=== PATIENT | female | born 1950 | race Caucasian/White ===

== ENCOUNTER → 2016-10-23 | Outpatient (CLI) | payer MEDICARE, OTHER ==
[~2016-10-23] MED LIST: ALPR0.5T11 PO; LOVA20TA2 PO; LVT.112T PO; PREMARIN VAG CR45 GM PV
--- NOTE | 2016-10-24 20:25 | Diagnostic Imaging Report ---
Bilateral screening mammogram The current study was also evaluated with a Computer Aided Detection (CAD) system. Indication: Screening. No current complaints stated on the questionnaire. COMPARISON: 09/27/15 FINDINGS: The breasts are composed of scattered fibroglandular densities. There are benign-appearing calcifications seen. Allowing for technique and positional differences, no suspicious change is seen. IMPRESSION: No significant change. ACR BI-RADS Category 2: Benign findings. Result letter will be mailed to the patient. Note: At least 10% of breast cancer is not imaged by mammography. Dictated on workstation # [id number]
== END ==
LOC: RAD 14:27
PROVIDERS: ATTEND Internal Medicine
DX: Z12.31 Encounter for screening mammogram for malignant neoplasm of breast (principal)
CPT/HCPCS: 77067

== ENCOUNTER → 2017-08-28 | Outpatient (CLI) | payer MEDICARE, OTHER ==
--- NOTE | 2017-08-28 15:37 | Diagnostic Imaging Report ---
INDICATION: Fall four months ago with pain in the tailbone region. TIME OF EXAMINATION: 03:36 p.m. FINDINGS: Sacrococcygeal alignment appears normal. No fracture is seen. Sacral arcuate lines are intact. SI joints and symphysis are non-widened. IMPRESSION: No acute abnormality is detected. Dictated by: Dictated on workstation # [id number]
== END ==
LOC: RAD 15:05
PROVIDERS: ATTEND Chiropractor
DX: M53.3 Sacrococcygeal disorders, not elsewhere classified (principal); W19.XXXD Unspecified fall, subsequent encounter; Z80.0 Family history of malignant neoplasm of digestive organs
CPT/HCPCS: 72220

== ENCOUNTER → 2017-10-29 | Outpatient (CLI) | payer MEDICARE, OTHER ==
--- NOTE | 2017-10-29 20:10 | Diagnostic Imaging Report ---
INDICATION: Osteoporosis screening. COMPARISON: Prior study from 09/27/2015. EXAMINATION: Bone mineral analysis of the lumbar spine and both hips was performed. FINDINGS: The bone mineral density of the lumbar spine at L2-L4 is 1.086 with a T-score of -1.0. This compares with 1.092 and -0.9. The bone mineral density of the left femoral neck is 0.814 with T-score of -1.6. This compares with 0.870 and -1.2. Bone marrow density of right femoral neck is 0.826 with T-score of -1.5. This compares with 0.831 and -1.5. IMPRESSION: Findings consistent with osteopenia of the lumbar spine and bilateral femoral necks. Dictated by: Dictated on workstation # [id number]
--- NOTE | 2017-10-29 20:47 | Diagnostic Imaging Report ---
INDICATION: Routine screening. COMPARISON: Comparison is made with prior mammograms from 10/23/2016 and 09/27/2015. TECHNIQUE: 2D and 3D bilateral screening mammography was performed with computer-aided detection (CAD) system. FINDINGS: Scattered fibroglandular densities are identified bilaterally. There are benign-appearing parenchymal and vascular calcifications bilaterally. Intraparenchymal lymph node in the upper right breast is stable. No spiculated mass or malignant appearing microcalcifications are seen. The axillae are unremarkable. IMPRESSION: No mammographic features suspicious for malignancy are identified. ACR BI-RADS Category 2: Benign findings. Result letter will be mailed to the patient. Note: At least 10% of breast cancer is not imaged by mammography. Dictated by: Dictated on workstation # [id number]
== END ==
LOC: RAD 10:27
PROVIDERS: ATTEND Internal Medicine
DX: Z12.31 Encounter for screening mammogram for malignant neoplasm of breast (principal); Z13.820 Encounter for screening for osteoporosis; M81.0 Age-related osteoporosis without current pathological fracture
CPT/HCPCS: 77067; 77080

== ENCOUNTER → 2018-07-05 | Outpatient (CLI) | payer MEDICARE, OTHER ==
--- NOTE | 2018-07-05 18:06 | Diagnostic Imaging Report ---
PA and lateral chest at 427 hours. INDICATION: Pneumonia. There are no prior studies available for comparison. FINDINGS: The heart size is within normal limits. There are a few crowded bronchovascular markings in the left infrahilar region. These findings could be chronic in nature but the possibility that there is an element of mild acute pneumonia/atelectasis should be considered. Clinical followup is recommended. The lungs are otherwise clear. There is no pleural effusion identified. The mediastinum is not widened. The osseous structures are intact. IMPRESSION: 1. The findings are suspicious for mild left lower lobe pneumonia/atelectasis. Clinical followup is recommended. 2. There is no acute cardiopulmonary abnormality noted otherwise. Dictated by: Dictated on workstation # [id number]
== END ==
LOC: RAD 16:05
PROVIDERS: ATTEND Internal Medicine
DX: J18.1 Lobar pneumonia, unspecified organism (principal)
CPT/HCPCS: 71046

== ENCOUNTER 2018-07-14 05:41 | Outpatient (CLI) | payer MEDICARE, OTHER ==
[~2018-07-14] VITALS: Ht 165.1 cm; Wt 68.9 kg
[2018-07-14] MEDS ORDERED: UBID100C44 PO (10:34)
[2018-07-14] MEDS ORDERED: CHOL200014 PO (10:34)
[2018-07-14] MEDS ORDERED: LEVO112T55 PO (10:34)
[2018-07-14] MEDS ORDERED: GLUT5POW MC (10:34)
[2018-07-14] MEDS ORDERED: MESA10002 RC (10:34)
[2018-07-14] MEDS ORDERED: LEVO125T6 PO (10:34)
[2018-07-14] MEDS ORDERED: JUICE PLUS PO (10:34)
[2018-07-14] MEDS ORDERED: LOVA20TA2 PO (10:34)
[2018-07-14] MEDS ORDERED: MULT-1112 PO (10:34)
== END 2018-07-14 10:52 | disposition home or self-care (01) ==
LOC: PREOP 05:41
PROVIDERS: ATTEND Surgery
DX: Z01.818 Encounter for other preprocedural examination (principal)

== ENCOUNTER 2018-07-21 09:57 | Day surgery (SDC) | payer MEDICARE, OTHER ==
[~2018-07-21] VITALS: Ht 165.1 cm; Wt 68.9 kg
[~2018-07-21 09:57] MED LIST changes: +CHOL200014 PO; +GLUT5POW MC; +JUICE PLUS PO; +LEVO112T55 PO; +LEVO125T6 PO; +MESA10002 RC; +MULT-1112 PO; +UBID100C44 PO
[2018-07-21] MEDS ORDERED: NS IV 500 ML 500 ML ONE (10:06)
[2018-07-21] MEDS ORDERED: NS IV 500 ML 500 ML IV PRN (10:07)
[2018-07-21] MEDS ORDERED: MIDAZOLAM 2 MG/2 ML (VERSED) VIAL IVP ONE (10:15)
[2018-07-21] MEDS ORDERED: fentaNYL INJECTION 100 MCG/2 ML AMP IVP ONE (10:15)
[2018-07-21] MEDS ORDERED: LIDOCAINE JELLY 2% 6 ML SYRINGE MM PRN ×2 (10:15→10:30)
[2018-07-21 10:23] VITALS: BP 133/71
[2018-07-21] MEDS ORDERED: LIDOCAINE JELLY 2% 6 ML SYRINGE ONE (10:24)
[2018-07-21] MEDS ORDERED: fentaNYL INJECTION 100 MCG/2 ML AMP ONE ×2 (10:24)
[2018-07-21] MEDS ORDERED: MIDAZOLAM 2 MG/2 ML (VERSED) VIAL ONE ×4 (10:24)
[2018-07-21] MEDS ORDERED: NS IV 500 ML 500 ML IV ONE (10:30)
--- NOTE | 2018-07-21 10:33 | Conscious Sedation/ASA ---
Conscious Sedation Pre-Proced Time 10:15 ASA Score 2 For ASA 3 and 4: Consider anesthesia and medical clearance. Also, for patients with a history of failed moderate sedation consider anesthesia. Airway Lungs Heart ASA score ASA 1: a normal healthy patient ASA 2: a patient with a mild systemic disease (mid diabetes, controlled hypertension, obesity ASA 3: a patient with a severe systemic disease that limits activity (angina , COPD, prior Myocardial infarction) ASA 4: a patient with an incapacitating disease that is a constant threat to life (CHF, renal failure) ASA 5: a moribund patient not expected to survive 24 hrs. (ruptured aneurysm) ASA 6: a declared brain- patient whose organs are being harvested. For emergent operations, add the letter E after the classification Mallampati Classification Grade 2 Sedation Plan Analgesia, Amnesia, Plan communicated to team members, Discussed options with patient/fam, Discussed risks with patient/fam The patient is an appropriate candidate to undergo the planned procedure, sedation, and anesthesia. The patient immediately re-assessed prior to indication. DAYRON ALMAZAN MD Jul 21, 2018 10:33
--- NOTE | 2018-07-21 10:33 | Progress Note-Pre Operative ---
Pre-Operative Progress Note H&P Reviewed The H&P was reviewed, patient examined and no changes noted. Date Seen by Provider: Jul 21, 2018 Time Seen by Provider: 10:15 Date H&P Reviewed: Jul 21, 2018 Time H&P Reviewed: 10:15 Pre-Operative Diagnosis: screening colonoscopy DAYRON ALMAZAN MD Jul 21, 2018 10:33
[2018-07-21] MEDS: fentaNYL INJECTION 100 MCG/2 ML AMP IV PRN ×2 (10:35→10:53)
--- NOTE | 2018-07-21 10:35 | Discharge Inst-Surgical ---
D/C Lap Instructions-NORAH Follow Up 10 yrs Activity as tolerated High Fiber Diet 25g or more per day Avoid Alcohol, Caffeine, Spicy [place] and Acid foods. Drink 64 fluid oz or more of fluids per day. Symptoms to Report: Fever over 101 degree F, Nausea/Vomiting If any problems/questions: Contact your physician or go to Emergency Room DAYRON ALMAZAN MD Jul 21, 2018 10:35
[2018-07-21] MEDS ORDERED: morphine INJ 10 MG/ML 1ML (SYR OR VIAL) IV PRN (10:45)
[2018-07-21] MEDS ORDERED: HYDROcodone/APAP 5 MG/325 MG (LORTAB) TAB PO PRN (10:45)
[2018-07-21] MEDS ORDERED: ONDANSETRON 4 MG/2 ML (SDV) Z0FRAN IV PRN (10:45)
[2018-07-21] MEDS ORDERED: ACETAMINOPHEN 325 MG TABLET PO PRN (10:45)
[2018-07-21] MEDS: MIDAZOLAM 2 MG/2 ML (VERSED) VIAL IV PRN ×4 (10:52→11:06)
--- NOTE | 2018-07-21 11:37 | Progress Note-Post Operative ---
Post-Operative Progess Note Surgeon (s)/Primer Press Operator (s) Surgeon DAYRON ALMAZAN MD Primer Press Operator: none Pre-Operative Diagnosis screening colonoscopy Post-Operative Diagnosis mild chronic stage 2 ext and int hemorrhoids. Procedure & Operative Findings Date of Procedure 07/21/18 Procedure Performed/Findings colonoscopy Anesthesia Type cs Estimated Blood Loss Estimated blood loss (mL): minimal Specimens/Packing Specimens Removed none DAYRON ALMAZAN MD Jul 21, 2018 11:37
[2018-07-21 11:55] VITALS: BP 114/59
[2018-07-21 12:30] VITALS: BP 121/64
[2018-07-21 13:00] VITALS: BP 121/64
--- NOTE | 2018-07-21 13:11 | OPERATIVE REPORT ---
DATE OF SERVICE: 07/21/2018 ATTENDING PRIMARY CARE PHYSICIAN: Dr. Ribeiro. PREOPERATIVE DIAGNOSIS: Screening colonoscopy with family history of colon cancer. PROCEDURE: Colonoscopy. SURGEON: Dayron Almazan MD ANESTHESIA: Conscious sedation. ESTIMATED BLOOD LOSS: Minimal. FINDINGS: Mild chronic stage II external and internal hemorrhoids. Remainder of the rectum and colon were normal. There were no polyps or any neoplasms identified. DISPOSITION: The patient tolerated the procedure well. The patient is a 68-year-old female in need of a screening colonoscopy. Her last one was in 2012 which she had reported some mild proctitis. At this time, she does not report any major issues with diarrhea nor constipation as well as no red blood per rectum nor any dark tarry stools. She does have a family history of colon cancer with her father having the disease being diagnosed at age 67. The patient was brought to the endoscopy suite, laid in the left lateral decubitus position. After adequate IV pain and sedative medications and conscious sedation anesthesia, a digital rectal examination was performed. Mild chronic stage II external and internal hemorrhoids were identified, which were not actively edematous nor inflamed and no bleeding. Normal sphincter tone was felt and there were no palpable masses. The endoscope was then intubated to the anus and rectum gently insufflated. The endoscope was then advanced to the valves of Welch in the rectum with no polyps or any neoplasms identified. We then proceeded to the sigmoid colon where no diverticulosis identified. The endoscope was then advanced to the remainder of the descending, transverse and ascending colon to the cecum. These segments were normal. There were no polyps or any neoplasms identified throughout the colon or rectum. The endoscope was then slowly withdrawn while taking a second look and suctioning residual air with no additional findings. The patient tolerated the procedure well. We will recommend a high fiber diet with at least 25 grams of fiber per day as well as significant amounts of water to promote soft stools on a daily basis. She does not need another colonoscopy for another 5 years. Job ID: [id number] DocumentID: [id number] Dictated Date: 07/21/2018 11:31:15 License Inspector Date: 07/21/2018 13:11:12 Dictated By: DAYRON ALMAZAN MD
== END 2018-07-21 13:00 | disposition home or self-care (01) ==
LOC: ENDO 09:57
PROVIDERS: ATTEND Surgery
DX: Z12.11 Encounter for screening for malignant neoplasm of colon (principal); K64.1 Second degree hemorrhoids; Z80.0 Family history of malignant neoplasm of digestive organs; Z87.19 Personal history of other diseases of the digestive system; R73.03 Prediabetes; E03.9 Hypothyroidism, unspecified; Z87.01 Personal history of pneumonia (recurrent); Z79.899 Other long term (current) drug therapy

== ENCOUNTER → 2018-08-05 | Outpatient (CLI) | payer MEDICARE, OTHER ==
--- NOTE | 2018-08-05 16:58 | Diagnostic Imaging Report ---
EXAMINATION: PA chest at 11:16 a.m. INDICATION: Respiratory distress, pneumonia. FINDINGS: The heart size is within normal limits and stable when compared to 07/05/2018. The prior study did raise the question of mild pneumonia/atelectasis involving the left lung base. On this exam, there still appears to be some increased density in the left retrocardiac region. These findings could be related to superimposition. The possibility that there is an element of pneumonia/atelectasis in this area should still be considered. If further imaging is desired, then CT of the chest will be recommended. The overall appearance of the chest is otherwise no different. There is now an oval metallic density overlying the lower cervical spine. This may be extraneous to the patient. IMPRESSION: 1. There is still an area of slightly increased density in the left retrocardiac region. Whether this is secondary to superimposition or where there is an element of pneumonia/atelectasis is not certain. If further imaging is desired, then CT of the chest will be recommended. 2. The overall appearance of the chest is otherwise stable. No new abnormality has developed otherwise. Dictated by: Dictated on workstation # [id number]
== END ==
LOC: RAD 11:00
PROVIDERS: ATTEND Internal Medicine
DX: J18.9 Pneumonia, unspecified organism (principal); J98.4 Other disorders of lung
CPT/HCPCS: 71045

== ENCOUNTER → 2018-08-12 | Outpatient (CLI) | payer MEDICARE, OTHER ==
--- NOTE | 2018-08-12 12:29 | Diagnostic Imaging Report ---
PROCEDURE: CT chest without contrast. TECHNIQUE: Multiple contiguous axial images were obtained through the chest without the use of intravenous contrast. INDICATION: Pneumonia, abnormal breath sounds. COMPARISON: None. FINDINGS: Given limitations on noncontrast imaging, no pathologically enlarged mediastinal and/or hilar lymphadenopathy is suggested. Heart size is normal. Trace pericardial effusion. Suggestion of likely minimal atelectasis about the right lower lobe. No significant consolidating infiltrate. In particular, no significant left lower lobe infiltrate. No pleural effusion. Multiple low-density masses scattered throughout the liver, favoring probable cysts. Multilevel degenerative changes are present. There is prominent ossification along the posterior longitudinal ligament at the T12-L1 level. This does result in osseous narrowing of spinal canal, slightly greater to the left of midline. IMPRESSION: 1. Negative for acute abnormality of the chest. No significant consolidating infiltrate. Likely minimal asymmetric atelectasis of the right lower lobe. 2. Incidental note made of asymmetric spinal canal stenosis owing to ossification along the posterior longitudinal ligament at T12-L1 level. Dictated by: Dictated on workstation # [id number]
== END ==
LOC: RAD 09:09
PROVIDERS: ATTEND Internal Medicine
DX: J18.9 Pneumonia, unspecified organism (principal); M48.05 Spinal stenosis, thoracolumbar region
CPT/HCPCS: 71250

== ENCOUNTER → 2018-11-22 | Outpatient (CLI) | payer MEDICARE, OTHER ==
--- NOTE | 2018-11-22 11:09 | Diagnostic Imaging Report ---
Indication: Routine screening. Comparison is made prior mammogram from 10/29/2017 and 10/23/2016. 2-D and 3-D bilateral screening mammography was performed with CAD. Both breasts remain heterogeneously dense, limiting the sensitivity of mammography. Fibronodular parenchymal pattern appears to be fairly stable. Benign calcifications are noted bilaterally. No dominant mass or malignant appearing microcalcifications are seen. Axillae are unremarkable. Impression: BI-RADS category 2 No mammographic features suspicious for malignancy are identified. ACR BI-RADS Category 2: Benign findings. Result letter will be mailed to the patient. Note: At least 10% of breast cancer is not imaged by mammography. Dictated by: Dictated on workstation # [id number]
== END ==
LOC: RAD 09:11
PROVIDERS: ATTEND Internal Medicine
DX: Z12.31 Encounter for screening mammogram for malignant neoplasm of breast (principal)
CPT/HCPCS: 77067

== ENCOUNTER → 2019-12-13 | Outpatient (CLI) | payer MEDICARE, OTHER ==
--- NOTE | 2019-12-13 13:02 | Diagnostic Imaging Report ---
INDICATION: Routine screening. Comparison is made with prior mammogram from 11/22/2018 and 10/29/2017. 2-D and 3-D bilateral screening mammography was performed with CAD. Both breasts are heterogeneously dense, limiting the sensitivity of mammography. Circumscribed nodular densities in both breasts appear to be stable. No dominant mass or malignant appearing microcalcifications are seen. There are benign parenchymal and vascular calcifications bilaterally. Axillae is unremarkable. IMPRESSION: BI-RADS Category 2 No mammographic features suspicious for malignancy are identified. ACR BI-RADS Category 2: Benign findings. Result letter will be mailed to the patient. Note: At least 10% of breast cancer is not imaged by mammography. Dictated by: Dictated on workstation # [id number]
== END ==
LOC: RAD 08:57
PROVIDERS: ATTEND Internal Medicine
DX: Z12.31 Encounter for screening mammogram for malignant neoplasm of breast (principal)
CPT/HCPCS: 77063; 77067

== ENCOUNTER → 2021-01-08 | Outpatient (CLI) | payer MEDICARE, OTHER ==
[~2021-01-08] MED LIST changes: -MESA10002 RC; +MESA10003 RC
--- NOTE | 2021-01-08 09:24 | Diagnostic Imaging Report ---
INDICATION: Postmenopausal screening for osteoporosis COMPARISON: 10/29/2017 FINDINGS: AP Spine L1-L4: [BMD (g/cm2): 1.053] [T-Score: -1.2] [Z-Score: 0.4] [BMD Previous: 1.086] [BMD % Change: -3.0] LT Hip Neck: [BMD (g/cm2): 0.838] [T-Score: -1.4] [Z-Score: 0.3] LT Hip Total: [BMD (g/cm2):0.846] [T-Score:-1.3] [Z-Score: 0.2] [BMD Previous: 0.845] [BMD % Change: 0.1] RT Hip Neck: [BMD (g/cm2):0.832] [T-Score:-1.5] [Z-Score:0.3] RT Hip Total: [BMD (g/cm2):0.837] [T-score:-1.4] [Z-Score:0.2] [BMD Previous:0.853] [BMD % Change:-1.9] *Indicates significant change from prior examination based on 95% confidence level. World Health Organization criteria for BMD interpretation classify patients as Normal (T-score at or above -1.0), Osteopenic (T-score between -1.0 and -2.5) or Osteoporotic (T-score at or below -2.5). LIMITATIONS AND MODIFICATION: None. FRACTURE RISK (FRAX SCORE): The ten year probability of (%): Major Osteoporotic Fracture: [10.7] Hip Fracture: [1.8] IMPRESSION: 1. Osteopenia (Low bone mass). 2. No significant change in bone mineral density since prior examination. 3. See below National Osteoporosis Foundation guidelines on when to potentially initiate pharmacologic therapy. Based on the National Osteoporosis Foundation Guidelines, pharmacologic treatment should be initiated in any of the following, unless clinical conditions suggest otherwise: * Any patient with prior fragility fracture of the hip or vertebrae. A spine fracture indicates 5X risk for subsequent spine fracture and 2X risk for subsequent hip fracture. * Osteoporosis (T-score <-2.5). * Postmenopausal women and men age 50 and older with low bone mass/osteopenia (T-score between -1.0 and -2.5) by DXA and 10-year major osteoporotic fracture greater than 20% or a 10-year probability of hip fracture greater than 3%. These fracture risks are supplied above in the FRAX score, if applicable. * Clinician judgement and/or patient preferences may indicate treatment for people with 10-year fracture probabilities above or below these levels. Dictated by: Dictated on workstation # [id number]
--- NOTE | 2021-01-08 13:49 | Diagnostic Imaging Report ---
INDICATION: Routine screening. COMPARISON: 12/13/2019 and 11/22/2018. TECHNIQUE: 2D and 3D bilateral screening mammography was performed with CAD. FINDINGS: Both breasts are heterogeneously dense, limiting the sensitivity of mammography. The fibronodular parenchymal pattern is again noted. There are scattered benign calcifications. No spiculated mass or malignant-appearing microcalcifications are seen. The axillae are unremarkable. IMPRESSION: No mammographic features suspicious for malignancy are identified. ACR BI-RADS Category 2: Benign findings. Result letter will be mailed to the patient. Note: At least 10% of breast cancer is not imaged by mammography. Dictated by: Dictated on workstation # [id number]
== END ==
LOC: RAD 08:30
PROVIDERS: ATTEND Internal Medicine
DX: Z12.31 Encounter for screening mammogram for malignant neoplasm of breast (principal); M85.80 Other specified disorders of bone density and structure, unspecified site; Z78.0 Asymptomatic menopausal state
CPT/HCPCS: 77063; 77067; 77080